=== PATIENT | female | born 1995 | race African-American/Black ===

== ENCOUNTER 2021-06-14 08:46 | Inpatient (IN) ==
[2021-06-14] MEDS ORDERED: KETOROLAC 15 MG/1 ML VIAL IV PRN (10:23)
[2021-06-14] MEDS ORDERED: ACETAMINOPHEN 325 MG TABLET PO PRN (10:23)
[2021-06-14] MEDS ORDERED: hydrALAZINE 20 MG/1 ML VIAL IV PRN (10:34)
[2021-06-14] MEDS: LACTATED RINGERS 1,000 ML IV SCH ×2 (12:29→22:29)
[2021-06-14] MEDS: ONDANSETRON 4 MG/2 ML VIAL IV PRN ×2 (18:31→23:38)
[2021-06-14] MEDS: HYDROmorphone 2 MG/1 ML VIAL IV PRN ×2 (18:32→23:39)
[2021-06-15 06:48] LABS: Basophils % 0.2 % (0.0-0.8); Eosinophils # 0.1 10*3/uL (0.0-0.87); Eosinophils % 1.9 % (0.00-10.9); Hematocrit 36.8 VOL% (35.7-47.0); Hemoglobin 11.9 GM/DL (12.0-16.0); Immature Granulocytes % 0.2 %; Immature Granulocytes Absolute 0.01 #; Lymphocytes # 1.7 10*3/uL (1.4-4.0); Lymphocytes % 41.6 % (21.3-54.2); Mean Corpuscular HGB Conc 32.3 GM/DL (32-36); Mean Platelet Volume 8.9 FL (9.6-12.0); Monocytes % 11.2 % (1.7-12.7); Neutrophils % 44.9 % (38.7-73.9); Platelet Count 310 T/CUMM (130-400); Red Blood Count 4.84 MC/CUMM (3.8-5.5); Red Cell Distribution Width 12.9 % (9.3-17.3); White Blood Count 4.1 T/CUMM (4-12)
[2021-06-15 07:12] LABS: Albumin 3.1 G/DL (3.4-5.0); Bilirubin,Total 0.4 MG/DL (0.20-1.00); Calcium 8.6 MG/DL (8.5-10.1); Osmolality,Calculated 271.7 MOS/KG (273-304); Potassium 3.5 MMOL/L (3.5-5.1); Total Protein 6.5 G/DL (6.4-8.2)
[2021-06-15] MEDS: ONDANSETRON 4 MG/2 ML VIAL IV PRN (07:43)
[2021-06-15] MEDS: HYDROmorphone 2 MG/1 ML VIAL IV PRN (07:44)
[2021-06-15] MEDS ORDERED: PANTOPRAZOLE 40 MG VIAL IV SCH (09:00)
[2021-06-15 10:45] VITALS: BP 121/73
[2021-06-15] MEDS: LACTATED RINGERS 1,000 ML IV SCH (10:55)
== END 2021-06-15 11:30 | disposition home or self-care (01) | DRG 392 ==
LOC: N.ED 08:46 → N.EDINP 08:46 → N.3E 11:34
PROVIDERS: ADMIT Surgery; ATTEND Surgery